=== PATIENT | female | born 1970 | race Caucasian/White ===

== ENCOUNTER 2017-04-13 10:19 | Day surgery (SDC) | payer MEDICARE ==
[2017-04-08 12:17] LABS: BASOPHILS % (AUTO) 0.6 % (0-1); EOSINOPHILS # (AUTO) 0.2 X10'3 (0-0.9); LYMPHOCYTES # (AUTO) 1.8 X10'3 (1.1-4.8); LYMPHOCYTES % (AUTO) 31.1 % (21-51); MEAN CORPUSCULAR HEMOGLOBIN 32.4 PG (27.0-31.0); MEAN CORPUSCULAR HGB CONC 33.6 % (33.0-36.5); MEAN CORPUSCULAR VOLUME 96.4 FL (78-98); MEAN PLATELET VOLUME 7.5 FL (7.4-10.4); MONOCYTES # (AUTO) 0.4 X10'3 (0-0.9); MONOCYTES % (AUTO) 6.2 % (2-12); NEUTROPHILS # (AUTO) 3.4 X10'3 (1.8-7.7); NEUTROPHILS % (AUTO) 59.1 % (42-75); PRE OP HEMATOCRIT 30.9 % (35.0-45.0); PRE OP PLATELET COUNT 243 X10'3 (140-440); RED BLOOD COUNT 3.21 X10'6 (4.20-5.60); RED CELL DISTRIBUTION WIDTH 15.1 % (11.5-14.5)
[2017-04-08 12:35] LABS: ALBUMIN 2.9 G/DL (3.4-5.0); ALBUMIN/GLOBULIN RATIO 0.8 (1.1-1.5); ALKALINE PHOSPHATASE 87 IU/L (46-116); BLOOD UREA NITROGEN 18 MG/DL (7-18); BUN/CREATININE RATIO 16.4 (6.6-38.0); CALCIUM 8.4 MG/DL (8.5-10.1); CHLORIDE 110 MMOL/L (99-107); PRE OP ALT 56 U/L (30-65); PRE OP ANION GAP 8 (8-16); PRE OP AST 35 U/L (10-37); PRE OP BILIRUB, TOTAL 0.2 MG/DL (0.0-1.0); PRE OP GLUCOSE 115 MG/DL (70-104); PRE OP POTASSIUM 4.3 MMOL/L (3.4-5.1); PRE OP SODIUM 141 MMOL/L (135-145); TOTAL CARBON DIOXIDE 23.5 MMOL/L (24-32); TOTAL PROTEIN 6.5 G/DL (6.4-8.2); eGFR 53 ML/MIN
[2017-04-08 13:07] LABS: PRE OP HEMOGLOBIN 10.4 g/dL (12.0-16.0)
[2017-04-13] VITALS (7 sets, daily range): BP systolic 92–107; BP diastolic 54–64
[~2017-04-13] VITALS: Ht 167.6 cm; Wt 78.0 kg
[~2017-04-13 10:19] MED LIST: ACET-1015 PO; ALPR2TAB7 PO; AMPH15CA6 PO; ASCO500C15 PO; BETA300T PO; CALC300T4 PO; CHOL10002 PO; DIGE1TAB PO; FLUT16SP20 INH; HYDR-3972 PO; INSU100V13 SQ; LACT1CAP65 PO; LEVO75TA PO; MULT-1085 PO; NORE-99 PO; OMEP-50 PO; TOPI25TA49 PO; VILA40TA PO; famotidine 20mg tablet PO ONE; ringers solution, lacted 1,000 ML IV SCH; scopolamine 1.5mg patch.TD72 TD ONE
[2017-04-13] MEDS ORDERED: aprepitant 40mg capsule PO ONE (11:10)
[2017-04-13] MEDS ORDERED: scopolamine 1.5mg patch.TD72 TD ONE (11:10)
[2017-04-13] MEDS ORDERED: LIDOcaine 1% (10mg/ml) 2ml vial ONE (11:11)
[2017-04-13] MEDS ORDERED: BUPIVAcaine/PF 2.5 mg/ml (0.25%) 30ml vial ONE ×2 (11:36→13:33)
[2017-04-13] MEDS ORDERED: triamcinolone acetonide 40mg/ml inj ONE (11:36)
[2017-04-13] MEDS ORDERED: desflurane 240ml liquid inh. IH ONE (13:00)
[2017-04-13] MEDS ORDERED: fentaNYL/PF 50MCG/1 ML 2ML syringe ONE (13:03)
[2017-04-13] MEDS ORDERED: midazolam 2 mg/2 ml injection ONE (13:03)
[2017-04-13] MEDS ORDERED: cloNIDine hcl/PF 100mcg/ml inj ONE (13:12)
[2017-04-13] MEDS ORDERED: propofol inj 20 ML IV ONE (13:33)
[2017-04-13] MEDS ORDERED: dexamethasone sod phosphate 4mg/ml inj. ONE (13:33)
[2017-04-13] MEDS ORDERED: LIDOcaine 2% (20mg/ml) 5ml vial ONE (13:33)
[2017-04-13] MEDS ORDERED: LIDOcaine 1%/PF (10mg/ml) 5ml vial ONE (13:33)
[2017-04-13] MEDS ORDERED: proCHLORperazine 10 MG/2 ml inj IV PRN (13:40)
[2017-04-13] MEDS ORDERED: ringers solution, lacted 1,000 ML IV SCH (13:40)
[2017-04-13] MEDS ORDERED: fentaNYL/PF 50MCG/1 ML 2ML syringe IV PRN (13:40)
[2017-04-13] MEDS ORDERED: morphine 2 MG/ML inj. syringe IV PRN (13:40)
[2017-04-13] MEDS ORDERED: ondansetron/PF 4mg/2ml inj IV PRN (13:40)
[2017-04-13] MEDS ORDERED: HYDROcodone/acetaminophen 10/325mg tab PO PRN (13:45)
== END 2017-04-13 14:45 | disposition home or self-care (01) ==
LOC: PAS 10:19
PROVIDERS: ATTEND Orthopaedic Surgery
DX: M75.02 Adhesive capsulitis of left shoulder (principal); G89.29 Other chronic pain; G43.909 Migraine, unspecified, not intractable, without status migrainosus; F32.9 Major depressive disorder, single episode, unspecified; E10.9 Type 1 diabetes mellitus without complications; M19.90 Unspecified osteoarthritis, unspecified site; Z88.2 Allergy status to sulfonamides; Z95.1 Presence of aortocoronary bypass graft; Z79.4 Long term (current) use of insulin; Z79.899 Other long term (current) drug therapy; Z98.890 Other specified postprocedural states
CPT/HCPCS: 20610; 23700; 36415; 80053; 82948; 85025; 93005; A4565; J0735; J1100; J2001; J2250; J2704; J3010; J3301; J3490; J7120; J8501

== ENCOUNTER 2017-12-31 09:25 | Day surgery (SDC) | payer MEDICARE ==
[2017-12-20 15:39] LABS: BASOPHILS % (AUTO) 0.3 % (0-1); EOSINOPHILS # (AUTO) 0.1 X10'3 (0-0.9); EOSINOPHILS % (AUTO) 1.1 % (0-6); LYMPHOCYTES # (AUTO) 1.4 X10'3 (1.1-4.8); LYMPHOCYTES % (AUTO) 24.7 % (21-51); MEAN CORPUSCULAR HEMOGLOBIN 32.5 PG (27.0-31.0); MEAN CORPUSCULAR HGB CONC 33.4 % (33.0-36.5); MEAN CORPUSCULAR VOLUME 97.5 FL (78-98); MEAN PLATELET VOLUME 8.3 FL (7.4-10.4); MONOCYTES # (AUTO) 0.4 X10'3 (0-0.9); MONOCYTES % (AUTO) 7.4 % (2-12); NEUTROPHILS # (AUTO) 3.9 X10'3 (1.8-7.7); NEUTROPHILS % (AUTO) 66.5 % (42-75); PRE OP HEMATOCRIT 34.3 % (35.0-45.0); PRE OP HEMOGLOBIN 11.4 g/dL (12.0-16.0); PRE OP PLATELET COUNT 242 X10'3 (140-440); RED BLOOD COUNT 3.52 X10'6 (4.20-5.60); RED CELL DISTRIBUTION WIDTH 13.7 % (11.5-14.5)
[2017-12-20 15:55] LABS: ALBUMIN 3.2 G/DL (3.4-5.0); ALBUMIN/GLOBULIN RATIO 0.8 (1.1-1.5); ALKALINE PHOSPHATASE 78 IU/L (46-116); BLOOD UREA NITROGEN 29 MG/DL (7-18); BUN/CREATININE RATIO 30.5 (6.6-38.0); CALCIUM 8.7 MG/DL (8.5-10.1); CHLORIDE 107 MMOL/L (99-107); CREATININE 0.95 MG/DL (0.40-0.90); PRE OP ALT 47 U/L (30-65); PRE OP ANION GAP 10 (8-16); PRE OP AST 26 U/L (10-37); PRE OP BILIRUB, TOTAL 0.2 MG/DL (0.0-1.0); PRE OP GLUCOSE 95 MG/DL (70-104); PRE OP SODIUM 140 MMOL/L (135-145); TOTAL CARBON DIOXIDE 22.8 MMOL/L (24-32); TOTAL PROTEIN 7.1 G/DL (6.4-8.2); eGFR 63 ML/MIN
[2017-12-20 16:03] LABS: HCG SERUM QL NEGATIVE
[~2017-12-31] VITALS: Ht 167.6 cm; Wt 75.5 kg
[~2017-12-31 09:25] MED LIST changes: -AMPH15CA6 PO; -BETA300T PO; -CALC300T4 PO; +CALCIUM PO; -DIGE1TAB PO; +DULO60CA45 PO; -HYDR-3972 PO; +IRON PO; -LACT1CAP65 PO; +LIOT25TA6 PO; +METH10TA4 PO; -MULT-1085 PO; -NORE-99 PO; -OMEP-50 PO; -VILA40TA PO; +cefazolin/dext.iso 2gm/100 ML IV ONE; -scopolamine 1.5mg patch.TD72 TD ONE
[2017-12-31] MEDS ORDERED: LIDOcaine 1% (10mg/ml) 2ml vial ONE (10:21)
[2017-12-31] MEDS ORDERED: ROPIVAcaine 0.5% (5mg/ml) 30ml vial ONE (10:45)
[2017-12-31 11:15] VITALS: BP 102/60
[2017-12-31 11:18] VITALS: BP 102/60
[2017-12-31] MEDS ORDERED: propofol inj 20 ML IV ONE (13:43)
[2017-12-31] MEDS ORDERED: dexamethasone sod phosphate 4mg/ml inj. ONE (13:43)
[2017-12-31] MEDS ORDERED: LIDOcaine 2% (20mg/ml) 5ml vial ONE (13:43)
[2017-12-31] MEDS ORDERED: ondansetron/PF 4mg/2ml inj ONE (13:43)
[2017-12-31] MEDS ORDERED: acetaminophen 1,000mg/100ml IV 100 ML IV ONE (13:45)
[2017-12-31] MEDS ORDERED: ondansetron/PF 4mg/2ml inj IV ONE (13:55)
[2017-12-31] MEDS ORDERED: sevoflurane 250ml liquid IH ONE (14:10)
[2017-12-31] MEDS ORDERED: fentaNYL/PF 50MCG/1 ML 2ML syringe ONE ×2 (14:16→15:28)
[2017-12-31] MEDS ORDERED: midazolam 2 mg/2 ml injection ONE (14:16)
[2017-12-31] MEDS ORDERED: ketorolac trometh. 30mg/ml inj. ONE (14:49)
[2017-12-31] MEDS ORDERED: BUPIVAcaine/PF 2.5mg/ml (0.25%) 10ml vial ONE (14:57)
[2017-12-31] MEDS ORDERED: ePHEDrine 50MG/ML INJ. ONE (15:06)
[2017-12-31] MEDS ORDERED: ringers solution, lacted 1,000 ML IV SCH (15:07)
[2017-12-31] MEDS ORDERED: ondansetron/PF 4mg/2ml inj IV PRN (15:10)
[2017-12-31] MEDS ORDERED: morphine 4 MG/ML inj SYRINge IV PRN ×2 (15:10)
[2017-12-31] MEDS ORDERED: hydrALAZINE 20mg/ml inj. IV PRN (15:10)
[2017-12-31] MEDS ORDERED: enalaprilat dihydrate 2.5mg/2ml vial IV PRN (15:10)
[2017-12-31] MEDS ORDERED: fentaNYL/PF 50MCG/1 ML 2ML syringe IV PRN ×2 (15:10)
[2017-12-31] MEDS ORDERED: triamcinolone acetonide 40mg/ml inj ONE (15:33)
[2017-12-31 15:55] VITALS: BP 101/54
[2017-12-31] MEDS ORDERED: HYDROcodone/acetaminophen 10/325mg tab PO PRN (15:55)
[2017-12-31 16:05] VITALS: BP 108/61
[2017-12-31 16:15] VITALS: BP 99/67
[2017-12-31 16:25] VITALS: BP 103/65
== END 2017-12-31 16:25 | disposition home or self-care (01) ==
LOC: PAS 09:25
PROVIDERS: ATTEND Orthopaedic Surgery
DX: M75.02 Adhesive capsulitis of left shoulder (principal); G89.29 Other chronic pain; E03.9 Hypothyroidism, unspecified; F32.9 Major depressive disorder, single episode, unspecified; E11.8 Type 2 diabetes mellitus with unspecified complications; G43.909 Migraine, unspecified, not intractable, without status migrainosus; M19.90 Unspecified osteoarthritis, unspecified site; Z86.69 Personal history of other diseases of the nervous system and sense organs; Z88.2 Allergy status to sulfonamides; Z79.4 Long term (current) use of insulin; Z79.891 Long term (current) use of opiate analgesic; Z98.84 Bariatric surgery status; Z98.890 Other specified postprocedural states; Z79.899 Other long term (current) drug therapy; Z80.9 Family history of malignant neoplasm, unspecified; Z81.8 Family history of other mental and behavioral disorders; Z83.3 Family history of diabetes mellitus
CPT/HCPCS: 29825; 36415; 64450; 80053; 82948; 84703; 85025; A6449; J0131; J0690; J1100; J1885; J2001; J2250; J2405; J2704; J3010; J3301; J3490; J7120; A7000; J2795; J7030